=== PATIENT | male | born 1955 | race Caucasian/White ===

== ENCOUNTER 2017-01-25 14:30 | Outpatient (RCR) | payer BC, MEDICARE, SELFPAY | END 2017-02-08 | LOC: OT 14:30 | PROVIDERS: Visit Provider Family Medicine | DX: S12.100A Unspecified displaced fracture of second cervical vertebra, initial encounter for closed fracture (principal); S12.600A Unspecified displaced fracture of seventh cervical vertebra, initial encounter for closed fracture; S42.101D Fracture of unspecified part of scapula, right shoulder, subsequent encounter for fracture with routine healing; S42.001S Fracture of unspecified part of right clavicle, sequela | CPT/HCPCS: 97014; 97110; 97140; 97165; G0283 ==